=== PATIENT | male | born 1970 | race Caucasian/White ===

== ENCOUNTER 2022-02-06 09:07 | Emergency (ER) | payer MEDICAID ==
[~2022-02-06] VITALS: Ht 162.6 cm; Wt 99.8 kg
[2022-02-06 09:17] VITALS: BP_SYST 141
--- NOTE | 2022-02-06 09:58 | NUR ---
Patient to ER bed 6 to gown for evaluation. Side rails up. Report given to JENNI ASHTON.
--- NOTE | 2022-02-06 10:00 | NUR ---
No report received on patient. Pt noted to be in room 6. Pt alert and oriented x 3. Reporting skin proble to kathia upper thighs. Denies pain or itching. Awaiting MD lucio.
--- NOTE | 2022-02-06 10:00 | NUR ---
Dr Jurado to bedside to examine patient
[2022-02-06] MEDS ORDERED: TRAM50TA PO (10:08)
[2022-02-06 10:28] VITALS: BP_SYST 136
--- NOTE | 2022-02-06 10:34 | NUR ---
Patient given written and verbal discharge instructions and verbalizes understanding. ER Dr Santana Jurado MD discussed with patient the results and treatment provided. Patient in stable condition. ID arm band removed. No IV inserted into pt Physical Rx of tramadol given. Patient educated on pain management and to follow up with PMD. Pain Scale . Opportunity for questions provided and answered. Medication side effect fact sheet provided.
== END 2022-02-06 10:28 | disposition home or self-care (01) ==
LOC: SED 09:07
DX: S86.912A Strain of unspecified muscle(s) and tendon(s) at lower leg level, left leg, initial encounter (principal); S86.911A Strain of unspecified muscle(s) and tendon(s) at lower leg level, right leg, initial encounter; X58.XXXA Exposure to other specified factors, initial encounter; Y93.89 Activity, other specified; Y92.89 Other specified places as the place of occurrence of the external cause; Y99.8 Other external cause status
CPT/HCPCS: 99283